=== PATIENT | male | born 1995 | race Caucasian/White ===

== ENCOUNTER → 2020-04-21 | Outpatient (CLI) | payer OTHER ==
--- NOTE | 2020-04-29 12:19 | PF ---
[address] [address] PULMONARY FUNCTION REPORT Name: SMOOTH MIGUEL Room: [facility]#: [id number] Admission: 04/21/20 Attend Phys: Tyson Ramsey MD Discharge: Date of : 89 Report #: [id number] THIS REPORT FOR: //name// CC: Tyson Ramsey [facility] physician/PCP DATE OF SERVICE: 04/21/2020 INTERPRETATION: Only a spirometry was performed. The FEV1/FVC ratio was decreased to 63% with an FVC normal at 87% and FEV1 decreased to 67%. The PVL37-19 is also decreased to 39%. After the administration of a bronchodilator, there is no significant increase in any of these values. The patient's post-bronchodilator FEV1 is 3.51 liters. IMPRESSION: Moderate obstruction without evidence of reversibility. <ELECTRONICALLY SIGNED> By: Ar Burnette MD 04/29/20 [id number] Burnette MD /nt
== END ==
LOC: M.PUL 10:00
PROVIDERS: ATTEND Orthopaedic Surgery
DX: J45.998 Other asthma (principal)